=== PATIENT | female | born 1970 | race Caucasian/White ===

== ENCOUNTER → 2024-09-22 08:54 | Outpatient (REF) | payer BC, SELFPAY | LOC: HWRCS 08:54 | PROVIDERS: ATTENDING PHYSICIAN Nurse Practitioner Adult Health | DX: E78.00 Pure hypercholesterolemia, unspecified (principal); R01.1 Cardiac murmur, unspecified; R55 Syncope and collapse | CPT/HCPCS: 93306 ==